=== PATIENT | male | born 1965 | race Caucasian/White ===

== ENCOUNTER → 2018-03-07 16:13 | Outpatient (REF) | payer SELFPAY ==
[2018-03-07 18:42] LABS: Basophils # 0.1 K/mm3 (0-0.2); Basophils % 0.9 % (0.1-2.0); Eosinophils # 0.2 K/mm3 (0.0-0.4); Eosinophils % 3.3 % (0.1-12.0); Hematocrit 49.1 % (42.0-52.0); Hemoglobin 15.2 g/dL (14.1-18.0); Lymphocytes # 1.4 K/mm3 (0.7-4.5); Lymphocytes % 26.8 K/mm3 (10-50); Mean Corpuscular Hemoglobin 30.3 pg (27.0-31.2); Mean Corpuscular Volume 97.6 fl (80-94); Monocytes # 0.5 K/mm3 (0.1-1.0); Monocytes % 9.6 % (1.7-9.3); Neutrophils # 3.2 K/mm3 (1.8-7.8); Neutrophils % 59.3 % (37.0-80.0); Platelet Count 241 K/mm3 (142-424); Red Blood Count 5.04 M/mm3 (4.60-6.20); Red Cell Distribution Width 12.7 % (11.5-17.5); White Blood Count 5.3 K/mm3 (4.8-10.8)
[2018-03-07 19:26] LABS: Alanine Aminotransferase 33 U/L (12-78); Albumin Level 3.7 gm/dL (3.4-5.0); Alkaline Phosphatase 104 U/L (46-116); Anion Gap 11.4 mEq/L (5-15); Aspartate Amino Transferase 25 U/L (15-37); Bilirubin,Total 0.3 mg/dL (0.2-1.0); Blood Urea Nitrogen 11 mg/dL (7-18); Calcium 9.3 mg/dL (8.5-10.1); Carbon Dioxide 29 mmol/L (21.0-32.0); Chloride 103 mmol/L (98-107); Chol/HDL Ratio 4.3 (1-3.5); Cholesterol 225 mg/dL (140-200); Creatinine,Serum 1.01 mg/dL (0.70-1.30); Estimated Glomerular Filt Rate 78 ml/min (>60); Free T4 (Free Thyroxine) 0.83 ng/dl (0.76-1.46); GFR (African American) 94 ML/MIN (>60); Globulin 3.7 gm/dl (1.3-3.2); Glucose 95 mg/dL (74-106); HDL Cholesterol 52 mg/dL (27-67); LDL Cholesterol 128 mg/dL (0-130); Potassium 4.4 mmoL/L (3.5-5.1); Sodium 139 mmol/L (136-145); Thyroid Stimulating Hormone 2.26 uIU/ml (0.358-3.740); Total Protein,Serum 7.4 gm/dL (6.4-8.2); Triglycerides 227 mg/dL (30-200); VLDL Cholesterol 45 mg/dL (0-40)
[2018-03-09 15:47] LABS: PSA, Free 0.18 ng/mL; Prostate Specific Ag 1.1 ng/mL (0.0-4.0); Vitamin D 25 Hydroxy 14.3 ng/mL (30.0-100.0)
== END ==
LOC: LAB 16:13
PROVIDERS: Visit Provider Emergency Medicine
DX: R53.83 Other fatigue (principal)
CPT/HCPCS: 80053; 80061; 82652; 84153; 84154; 84439; 84443; 85025

== ENCOUNTER → 2019-05-28 13:45 | Outpatient (CLI) | payer OTHER, SELFPAY ==
[2019-05-28 15:00] LABS: Basophils % 0.7 % (0.1-2.0); Eosinophils # 0.2 K/mm3 (0.0-0.4); Eosinophils % 4.5 % (0.1-12.0); Hematocrit 50.9 % (42.0-52.0); Hemoglobin 16.8 g/dL (14.1-18.0); Lymphocytes # 1.2 K/mm3 (0.7-4.5); Mean Corpuscular HGB Conc 33.1 g/dL (31.8-35.4); Mean Corpuscular Hemoglobin 32.3 pg (27.0-31.2); Mean Corpuscular Volume 97.6 fl (80-94); Mean Platelet Volume 7.8 fl (7.4-10.4); Monocytes # 0.4 K/mm3 (0.1-1.0); Neutrophils # 2.9 K/mm3 (1.8-7.8); Neutrophils % 60.9 % (37.0-80.0); Platelet Count 290 K/mm3 (142-424); Red Blood Count 5.22 M/mm3 (4.60-6.20); Red Cell Distribution Width 13.1 % (11.5-17.5); White Blood Count 4.8 K/mm3 (4.8-10.8)
[2019-05-28 15:43] LABS: Alanine Aminotransferase 30 U/L (12-78); Albumin Level 3.9 gm/dL (3.4-5.0); Albumin/Globulin Ratio 0.9 (1.1-1.8); Alkaline Phosphatase 108 U/L (46-116); Anion Gap 13.2 mEq/L (5-15); Aspartate Amino Transferase 25 U/L (15-37); Bilirubin,Total 0.4 mg/dL (0.2-1.0); Blood Urea Nitrogen 6 mg/dL (7-18); Calcium 9.7 mg/dL (8.5-10.1); Carbon Dioxide 32 mmol/L (21.0-32.0); Chloride 100 mmol/L (98-107); Chol/HDL Ratio 4.1 (1-3.5); Cholesterol 232 mg/dL (140-200); Creatinine,Serum 0.94 mg/dL (0.70-1.30); Estimated Glomerular Filt Rate 84 ml/min (>60); Free T4 (Free Thyroxine) 1.03 ng/dl (0.76-1.46); GFR (African American) 102 ML/MIN (>60); Globulin 4.2 gm/dl (1.3-3.2); Glucose 105 mg/dL (74-106); HDL Cholesterol 57 mg/dL (27-67); LDL Cholesterol 156 mg/dL (0-130); Potassium 5.2 mmoL/L (3.5-5.1); Sodium 140 mmol/L (136-145); Thyroid Stimulating Hormone 2.93 uIU/ml (0.358-3.740); Total Protein,Serum 8.1 gm/dL (6.4-8.2); Triglycerides 95 mg/dL (30-200); VLDL Cholesterol 19 mg/dL (0-40)
[2019-05-29 09:49] LABS: PSA, Free 0.17 ng/mL; Prostate Specific Ag 0.7 ng/mL (0.0-4.0); Vitamin D 25 Hydroxy 47.8 ng/mL (30.0-100.0)
== END ==
PROVIDERS: Visit Provider Emergency Medicine
DX: R53.83 Other fatigue (principal); I10 Essential (primary) hypertension; E78.5 Hyperlipidemia, unspecified; E03.9 Hypothyroidism, unspecified; G62.9 Polyneuropathy, unspecified; J44.9 Chronic obstructive pulmonary disease, unspecified; R07.9 Chest pain, unspecified; Z72.0 Tobacco use
CPT/HCPCS: 80053; 80061; 82652; 84153; 84154; 84439; 84443; 85025